=== PATIENT | female | born 1960 | race Caucasian/White ===

== ENCOUNTER 2020-04-21 08:41 | Outpatient (REF) | payer BC, SELFPAY ==
--- NOTE | 2020-04-21 08:45 | MM_ITS ---
EXAMINATION: MM SCREENING DIGITAL BREAST TOMOSYNTHESIS, BILATERAL CLINICAL INFORMATION: Screening. Asymptomatic. The lifetime risk of breast cancer based on the Tyrer-Cuzick Model is 8%. COMPARISON: Mammography: 04/16/2019, 03/29/2018, 09/21/2016. TECHNIQUE: Digital mammography is performed in craniocaudal and mediolateral oblique views along with computer-aided detection (CAD). Digital breast tomosynthesis is performed in implant-displaced craniocaudal and implant-displaced mediolateral oblique views along with computer-aided detection (CAD). Synthesized 2D images are generated from the tomosynthesis. FINDINGS: There are scattered areas of fibroglandular density (ACR BI-RADS breast composition Category b). There are no significant masses, abnormal calcifications, or other abnormalities. The implant contours are smooth and similar to prior studies. There is no significant change from prior exams. MM/MM tomosynthesis screen imp BI IMPRESSION: No mammographic evidence of malignancy. ASSESSMENT: BI-RADS 1: Negative RECOMMENDATION: Routine annual mammography screening. This patient's information was entered into a reminder system with a target due date for their next mammogram.
== END 2020-04-21 08:42 | disposition home or self-care (01) ==
LOC: HO.MAMMO 08:41
PROVIDERS: PCP Family Medicine; Visit Provider Family Medicine
DX: Z12.31 Encounter for screening mammogram for malignant neoplasm of breast (principal)
CPT/HCPCS: 77063; 77067

== ENCOUNTER 2021-09-14 14:42 | Outpatient (REF) | payer BC, SELFPAY ==
--- NOTE | ~2021-09-14 | MM_ITS ---
EXAMINATION: MM SCREENING DIGITAL BREAST TOMOSYNTHESIS, BILATERAL CLINICAL INFORMATION: Screening. Asymptomatic. The lifetime risk of breast cancer based on the Tyrer-Cuzick Model is 7%. COMPARISON: Mammography: 04/21/2020, 04/16/2019, 03/29/2018 TECHNIQUE: Digital mammography is performed in craniocaudal and mediolateral oblique views along with computer-aided detection (CAD). Digital breast tomosynthesis is performed in implant-displaced craniocaudal and implant-displaced mediolateral oblique views along with computer-aided detection (CAD). Synthesized 2D images are generated from the tomosynthesis. FINDINGS: There are scattered areas of fibroglandular density (ACR BI-RADS breast composition Category b). There are no significant masses, abnormal calcifications, or other abnormalities. Parenchymal pattern is similar to prior studies. The implant margins are smooth. The axilla are unremarkable. No significant changes. MM/MM tomosynthesis screen imp BI IMPRESSION: No mammographic evidence of malignancy. ASSESSMENT: BI-RADS 1: Negative RECOMMENDATION: Routine annual mammography screening. This patient's information was entered into a reminder system with a target due date for their next mammogram.
== END 2021-09-14 14:43 | disposition home or self-care (01) ==
LOC: HO.MAMMO 14:42
PROVIDERS: Visit Provider Family Medicine
DX: Z12.31 Encounter for screening mammogram for malignant neoplasm of breast (principal)
CPT/HCPCS: 77063; 77067

== ENCOUNTER 2022-10-14 11:12 | Outpatient (REF) | payer BC, SELFPAY ==
--- NOTE | ~2022-10-14 | MM_ITS ---
EXAMINATION: MM SCREENING DIGITAL BREAST TOMOSYNTHESIS, BILATERAL CLINICAL INFORMATION: Screening. Asymptomatic. The lifetime risk of breast cancer based on the Tyrer-Cuzick Model is 7%. COMPARISON: Mammography: 09/14/2021, 04/21/2020, 04/16/2019 TECHNIQUE: Digital mammography is performed in craniocaudal and mediolateral oblique views along with computer-aided detection (CAD). Digital breast tomosynthesis is performed in implant-displaced craniocaudal and implant-displaced mediolateral oblique views along with computer-aided detection (CAD). Synthesized 2D images are generated from the tomosynthesis. FINDINGS: There are scattered areas of fibroglandular density (ACR BI-RADS breast composition Category b). There are bilateral implants with smooth contours, similar to prior studies. Parenchymal pattern is similar to prior exams and there is no developing density or architectural abnormality. There are no significant masses, abnormal calcifications, or other abnormalities. The axilla and skin contours are unremarkable. MM/MM tomosynthesis screen imp BI IMPRESSION: No mammographic evidence of malignancy. ASSESSMENT: BI-RADS 1: Negative RECOMMENDATION: Routine annual mammography screening. This patient's information was entered into a reminder system with a target due date for their next mammogram.
== END 2022-10-14 11:13 | disposition home or self-care (01) ==
LOC: HO.MAMMO 11:12
PROVIDERS: PCP Family Medicine; Visit Provider Family Medicine
DX: Z12.31 Encounter for screening mammogram for malignant neoplasm of breast (principal)
CPT/HCPCS: 77063; 77067

== ENCOUNTER 2023-10-18 10:17 | Outpatient (REF) | payer BC, SELFPAY ==
--- NOTE | ~2023-10-18 | MM_ITS ---
EXAMINATION: MM SCREENING DIGITAL BREAST TOMOSYNTHESIS, BILATERAL WITH BREAST IMPLANTS CLINICAL INFORMATION: Screening. Asymptomatic. COMPARISON: Mammography: This study is compared with prior mammograms dating back to 2019. TECHNIQUE: Digital mammography is performed in craniocaudal and mediolateral oblique views along with computer-aided detection (CAD). Digital breast tomosynthesis is performed in implant-displaced craniocaudal and implant-displaced mediolateral oblique views along with computer-aided detection (CAD). Synthesized 2D images are generated from the tomosynthesis. FINDINGS: There are scattered areas of fibroglandular density (ACR BI-RADS breast composition Category b). There are bilateral, mammographically intact, retropectoral saline breast implants. There are no significant masses, abnormal calcifications, or other abnormalities. MM/MM tomosynthesis screen imp BI IMPRESSION: There are no significant changes from prior study. ASSESSMENT: BI-RADS BI-RADS 1 - Negative RECOMMENDATION: Routine annual mammography screening. 1 year F/U This patient's information was entered into a reminder system with a target due date for their next mammogram.
== END 2023-10-18 10:18 | disposition home or self-care (01) ==
LOC: HO.MAMMO 10:17
PROVIDERS: PCP Family Medicine; Visit Provider Family Medicine
DX: Z12.31 Encounter for screening mammogram for malignant neoplasm of breast (principal)
CPT/HCPCS: 77063; 77067

== ENCOUNTER → 2023-10-18 10:30 | Outpatient (BNV) | payer BC, SELFPAY | PROVIDERS: PCP Family Medicine; Visit Provider Radiology Diagnostic Radiology | DX: Z12.31 Encounter for screening mammogram for malignant neoplasm of breast (principal) | CPT/HCPCS: 77063; 77067 ==

== ENCOUNTER → 2024-11-29 12:30 | Outpatient (BNV) | payer BC, SELFPAY | PROVIDERS: PCP Family Medicine; Visit Provider Internal Medicine | DX: Z12.31 Encounter for screening mammogram for malignant neoplasm of breast (principal) | CPT/HCPCS: 77063; 77067 ==

== ENCOUNTER 2024-11-29 12:32 | Outpatient (REF) | payer BC, SELFPAY ==
--- OUTSIDE RECORDS SUMMARY | 2024-11-29 12:34 | XMS_ITS | Referral Summary ---
Author Organization [facility] Address [address] [place] [address] Care Team Providers Care Pressure Testing Technician Name Role Phone Rosendo Dye MD Primary Care Provider [phone] Allergies Active Allergy Reactions Criticality Noted Date Comments [place] Nut Rash 08/30/2020 Social History Tobacco Use Types Packs/Day Years Used Date Smoking Tobacco: Never Assessed Comments Unknown Sex and Gender Information Value Date Recorded Sex Assigned at Not on file Legal Sex Female 5:49 PM EDT Gender Identity Not on file Sexual Orientation Not on file Last Filed Vital Signs Vital Sign Reading Time Taken Comments Blood Pressure 131/77 08/30/2020 11:21 PM EDT Pulse 66 08/30/2020 10:10 PM EDT Temperature 36.7 C (98.1 F) 08/30/2020 11:21 PM EDT Respiratory Rate 18 08/30/2020 11:21 PM EDT Oxygen Saturation 99% 08/30/2020 11:21 PM EDT Inhaled Oxygen Concentration - - Weight - - Height - - Body Mass Index - - Plan of Treatment [place] [id number] [facility] HMO/POS Care Teams Pressure Testing Technician Relationship Specialty Start Date End Date Rosendo Dye MD [address] [place] [address] PCP - General 08/30/20
--- OUTSIDE RECORDS SUMMARY | 2024-11-29 12:34 | XMS_ITS ---
Author Name [facility] Organization Unknown History of Medication Use Medication Directions Dispensed Refills Start Date End Date Stat us fluconazole (DIFLUCAN) 150 mg tablet Take 1 tablet (150 mg total) by mouth once for 1 dose. Repeat in 72 hours if still symptomatic 08/09/2022 08/10/2022 active estradioL (VIVELLE-DOT) 0.025 mg/[address] 1 PATCH ON THE SKIN 2 TIMES A WEEK. 02/10/2022 08/31/2023 active gabapentin (NEURONTIN) 300 mg capsule Take 300 mg by mouth. 02/10/2022 active progesterone (PROMETRIUM) 100 mg capsule TAKE ONE CAPSULE 3 TIMES PER WEEK 03/10/2021 08/09/2022 active naproxen (NAPROSYN) 500 mg tablet Take 500 mg by mouth 2 (two) times a day with meals. 08/09/2022 aborted Allergies Allergen Reaction Severity Comment Documented Date Source Statu s [place]RAZ[place] NUT RASH 08/30/2020 [facility] active Immunizations Vaccine Date Source Lot Number Status Influenza TIV (IM) 01/20/2022 [facility] [id number] comple miki COVID-19 mRNA (PFIZER BOOSTER) 02/04/2021 [facility] [id number] completed COVID-19 mRNA (PFIZER) 08/03/2020 [facility] [id number] co mpleted COVID-19 mRNA (PFIZER) 07/10/2020 [facility] [id number] co mpleted Encounters Encounter Type Encounter Reason Primary Diagnosis Location Date Ambulatory Encounter for gynecological examination Encounter for gynecological examination (general) (routine) without abnormal findings [facility] 08/19/2024 Ambulatory Encounter for gynecological examination Encounter for gynecological examination (general) (routine) without abnormal findings [facility] 08/14/2023 Ambulatory Encounter for gynecological examination (general) (routine) without abnormal findings [facility] 08/09/2022 Ambulatory Encounter for gynecological examination (general) (routine) without abnormal findings [facility] 03/10/2021 Ambulatory Encounter for immunization [facility] 02/04/2021 Care Team Organization Name Specialty Phone Email Start Date End [facility] 03/15/2024 [facility] NO PCP Primary Care 08/09/202203/2023 [facility] PCP,No Primary Care 03/12/2021
--- OUTSIDE RECORDS SUMMARY | 2024-11-29 12:34 | XMS_ITS | Clinical Summary ---
Author Organization [facility] Address [address] [place] [address] Care Team Providers Care Cover Machine Operator Name Role Phone Pcp, No MD Primary Care Provider Zo De La Fuente APRN Unavailable [phone] Allergies Active Allergy Reactions Criticality Noted Date Comments [place] Nut Rash Low 08/30/2020 Medications * This document contains information received from the source organization and may not represent a complete record from that organization. testosterone 10 mg/0.5 gram /actuation gel in metered-dose pump Place 20 mg on the skin 3 (three) times a week. Max Daily Amount: 20 mg 60 g 3 9 Active valACYclovir (VALTREX) 500 mg tablet Take 500 mg by mouth 2 (two) times a day. Active progesterone (PROMETRIUM) 100 mg capsuleIndications :Encounter for gynecological examination without abnormal finding TAKE ONE CAPSULE 3 TIMES PER WEEK 36 capsule 9 3 Active gabapentin (NEURONTIN) 300 mg capsule Take 300 mg by mouth. 2 Active celecoxib (CeleBREX) 100 mg capsule Take 100 mg by mouth in the morning. Active naproxen (NAPROSYN) 500 mg tablet Take 500 mg by mouth in the morning. Active estradioL (VIVELLE-DOT) 0.025 mg/24 hrIndications:Enco unter for gynecological examination without abnormal finding PLACE 1 PATCH ON THE SKIN 2 TIMES A WEEK. 24 patch 3 5 Active progesterone (Prometrium) 100 mg capsule Take on capsule by mouth three times per week 30 capsule 3 5 Active Immunizations Immunization Administration Dates Next Due COVID-19 mRNA (PFIZER BOOSTER) 02/04/2021 COVID-19 mRNA (PFIZER) 08/03/2020,07/10/2020 Influenza TIV (IM) 01/20/2022 Family History Medical History Relation Comments Leukemia Mother Osteoarthritis Mother Relation Status Comments Father Mother Alive Social History Tobacco Use Types Packs/Day Years Used Date Smoking Tobacco: Never Passive Smoke Exposure: Past Smokeless Tobacco: Never Tobacco Cessation:Counseling Given: Not Answered Alcohol Use Standard Drinks/Week Comments Yes 0 (1 standard drink = 0.6 oz pur e alcohol) weekly Humiliation, Afraid, Rape, and Kick questionnair e Answer Date Recorded Within the last year, have y ou been afraid of your partner or ex-partner? No 08/19/2024 Within the last year, have y ou been humiliated or emotionally abused in other ways by your partner or ex-partner? No Within the last year, have y ou been kicked, hit, slapped, or otherwise physically hurt by your partner or ex-partner? No 08/19/2024 Within the last year, have y ou been raped or forced to have any kind of sexual activity by your partner or ex-partner? No 08/19/2024 PHQ-2 Answer Date Recorded PHQ-2 Score 0 08/19/2024 Comments No Sex and Gender Information Value Date Recorded Sex Assigned at Female 06/29/2020 6:53 AM EST Legal Sex Female 6:52 AM EST Gender Identity Female 06/29/2020 6:53 AM EST Sexual Orientation Lesbian 06/29/2020 6: 53 AM EST Last Filed Vital Signs Vital Sign Reading Time Taken Comments Blood Pressure 100/68 08/19/2024 10:04 AM EDT Pulse 69 08/19/2024 10:04 AM EDT Temperature - - Respiratory Rate - - Oxygen Saturation - - Inhaled Oxygen Concentration - - Weight 52.3 kg (115 lb 3.2 oz) 08/19/2024 10:04 AM EDT Height 161.3 cm (5' 3.5 ) 08/19/2024 10:04 AM ED T Body Mass Index 20.09 08/19/2024 10:04 AM EDT Plan of Treatment Upcoming Encounters Date Type Department Care Team (Late st Contact Info) Description 08/25/2025 10:00 AM EDT Office Visit [facility] Department of [facility] [address] [place], [place] [id number] Shahrzad Sen APRN [address] [place] [address] Health Maintenance Due Date Last Done Comments Bone Density Screening 1958 Breast Cancer Screening [address] CT Colonography 1958 Colonoscopy 1958 Colorectal Cancer Screening 1958 FIT-DNA (Cologuard) 1958 FIT 1958 FOBT 1958 Flex Sigmoidoscopy - 5y 1958 HIV Screening 1960 Hepatitis C Screening 01/10/1976 Pneumococcal Vaccine, 50+ Years (1 of 1 - PCV) 01/10/2008 Zoster Vaccines (1 of 2) 01/10/2008 COVID-19 Vaccine ( - season) 2024 12/29/2023, 07/07/2023, 02/14/2023, Additional history exists Influenza Vaccine (#1) 2024 , 02/14/2023, 01/20/2022, Additional history exists DTaP,Tdap,and Td Vaccines (2 - Td or Tdap) 03/05/2025 03/05/2015, 09/29/2004 Cervical Cancer Screening Discontinued HPV/Cotest Discontinued 08/09/2022, 02/25/2019 Pap Smear Discontinued 08/09/2022, 02/25/2019 HPV Vaccines Aged Out No longer eligi ble based on patient's age to complete this topic Hepatitis A Vaccines Aged Out No long er eligible based on patient's age to complete this topic MMR Vaccines Aged Out No longer eligi ble based on patient's age to complete this topic Meningococcal Vaccine Aged Out No santos sina eligible based on patient's age to complete this topic Procedures Procedure Name Priority Date/Time Associated Diagnosis Comments PAP TEST Routine 08/09/2022 3:50 PM EDT Encounter for gynecological examination without abnormal finding Screening for malignant neoplasm of cervix HPV, HIGH RISK, NAAT, W/ REFLEX TO GENOTYPES 16 AND 18/45 Routine 08/09/2022 3:50 PM EDT Encounter for gynecological examination without abnormal finding Screening for malignant neoplasm of cervix from Last 3 Months or Most Recently Relevant to Health Maintenance Results * HPV, high risk, NAAT (08/09/2022 3:50 PM EDT) HPV, high-risk Negative Negative 08/12/2022 11:[address] [facility] Brushing Cervix uteri structure / Unknown Non-blood Collection / Unknown 08/09/2022 3:50 PM EDT 08/09/2022 5:[address] [facility] - 08/12/2022 11:11 AM EDT Negative results indicate Human Papillomavirus (HPV) E6/E7 viral messenger RNA of the 14 high-risk types of HPV was not detected. NOTE: Negative results may occur with HPV E6/E7 mRNA concentrations that are below the pre-set limit of detection threshold for this assay. Results of this test should only be interpreted in conjunction with information available from the clinical evaluation of the patient and patient history. us Shahrzad Sen APRN LAB MICROBIOLOGY - GENERAL ORDER GABBY Final Result [facility] [address] [place] [address], [place] [phone] * Pap Test (08/09/2022 3:50 PM EDT) Case Report Cytology Case: [id number] Authorizing Provider: Shahrzad Sen APRN Collected: 08/09/2022 1550 Ordering Location: [facility] Department of Received: 08/10/2022 0834 [facility] First Screen: Liban Edge BS CT (ASCP) Specimen: Cytopathology, screening PAP test, Cervix 08/12/2022 11:[address] [facility] LMP Postmenopausal 08/12/2022 11:[address] [facility] Interpretation Negative for intraepithelial lesion or malignancy 08/12/2022 11:[address] [facility] at 1111 EDT Specimen Adequacy Satisfactory for evaluation, endocervical/eastman sformation zone component present 08/12/2022 11:[address] [facility] Other Findings Fungal organisms morphologically consistent with Edith spp 08/12/2022 11:11 AM [facility] Specimen Processing Thin Prep pap with manual screen/rescreen or review 08/12/2022 11:11 AM [facility] Educational Note The Pap test is a screening test which carries an inherent false negative rate. These test results should be correlated with the patient's clinical findings and history. 08/12/2022 11:[address] [facility] Embedded Images 11:11 AM [facility] High Risk HPV Nucleic Acid Detection Negative 08/12/2022 11:11 AM [facility] Comment: Negative results indicate HPV E6/E7 mRNA of the 14 high-risk types of HPV was not detected. NOTE: Negative results may occur with HPV E6/E7 mRNA concentrations that are below the pre-set limit of detection threshold for this assay. Results of this test should only be interpreted in conjunction with information available from the clinical evaluation of the patient and patient history. The APTIMA HPV Assay is a target amplification nucleic acid probe test for the in vitro qualitative detection of E6/E7 viral messenger RNA (mRNA), from 14 high- risk HPV types of human papillomavirus (HPV) (16/18/31/33/35/39/45/51/52/56/58/59/66/68) in cervical specimens collected in ThinPrep Pap Test vials containing PreservCyt Solution. The APTIMA HPV Assay does not discriminate between the 14 high-risk types. If clinically indicated, positive samples may be additionally tested with the APTIMA HPV 16 18/45 Genotype Assay to assess the presence or absence of high-risk HPV genotypes 16, 18 and/or 45. These results are not intended to be the sole means for clinical diagnosis and should always be correlated with other patient findings, including cytology, histology, and clinical evaluation. APTIMA HPV Assay assay was performed and reported by the Microbiology Laboratory, Department of Pathology and Laboratory Medicine at [facility] Brushing Cervix uteri structure / Unknown Non-blood Collection / Unknown 08/09/2022 3:50 PM EDT 08/10/2022 8:34 AM EDT us Shahrzad Sen APRN LAB PATHOLOGY/CYTOLOGY ORDERABLE S Final Result [facility] [address] [place] [id number], [place] [phone] from Last 3 Months or Most Recently Relevant to Health Maintenance Insurance Dr [place], [place] [id number] [employer] Care Teams Cover Machine Operator Relationship Specialty Start Date End Date Pcp, MD Jill [address] [place] [address] PCP - General Internal Medicine 02/12/20 Zo Hassan APRN [address] [place] [address] [place] [address] Advanced Nurse Practitioner Obstetrics and Gynecology 03/10/21
--- OUTSIDE RECORDS SUMMARY | 2024-11-29 12:34 | XMS_ITS | Encounter Summary ---
Author Organization [facility] Address [address] [place] [address] [place] [phone] Phone Care Team Providers Care Senior Java Web Developer Name Role Phone Unknown, Unknown Primary Care Provider Narinder perez Pcp, Unknown Primary Care Provider Unavailabl e Encounter Details Date Type Department Care Team (Late st Contact Info) Description 02/09/2022 Procedure Pass [facility] [address] [place] [address] Social History Tobacco Use Types Packs/Day Years Used Date Smoking Tobacco: Never Smokeless Tobacco: Never Alcohol Use Standard Drinks/Week Comments Yes 3 (1 standard drink = 0.6 oz pur e alcohol) Comments No Sex and Gender Information Value Date Recorded Sex Assigned at Female 11/23/2021 1:18 PM EDT Legal Sex Female 6:44 PM EST Gender Identity Female 11/23/2021 1:18 PM EDT Sexual Orientation Lesbian or Gil 11/23/2021 1: 18 PM EDT documented as of this encounter Plan of Treatment Not on file documented as of this encounter Visit Diagnoses Not on filedocumented in this encounter Care Teams Senior Java Web Developer Relationship Specialty Start Date End Date Unknown, Unknown, PCP - General 12/28/20 12/20/23 Pcp, Unknown PCP - General 12/21/23 documented as of this encounter Additional Source Comments The information contained in this document represents components of the legal health record. It is not the complete legal health record.[facility]
== END 2024-11-29 12:33 | disposition home or self-care (01) ==
LOC: HO.MAMMO 12:32
PROVIDERS: PCP Family Medicine; Visit Provider Family Medicine
DX: Z12.31 Encounter for screening mammogram for malignant neoplasm of breast (principal)
CPT/HCPCS: 77063; 77067